=== PATIENT | male | born 1955 | race Caucasian/White ===

== ENCOUNTER 2023-11-04 08:18 | Observation (INO) ==
--- NOTE | 2023-10-13 14:52 | PAT Medication Instructions ---
Medication Instructions Date of Service October 13, 2023 Home Medications Micahopher's Tissue & Bone 1 dose PO QAM Fruit Pectin 1 dose PO DAILY cholecalciferol (vitamin D3) 25 mcg (1,000 unit) capsule (Vitamin D3) 25 mcg PO QAM cyanocobalamin (vitamin B-12) 500 mcg tablet (Vitamin B-12) 500 mcg PO QAM ibuprofen 200 mg tablet (Advil) 200 mg PO BID PRN meloxicam 15 mg tablet 15 mg PO QAM turmeric root extract 500 mg capsule 1,000 mg PO BID ASK your surgeon for instructions ibuprofen 200 mg tablet (Advil) 200 mg PO BID PRN meloxicam 15 mg tablet 15 mg PO QAM STOP taking 2 weeks before surgery (or as soon as possible if surgery is within 2 weeks) Micahopher's Tissue & Bone 1 dose PO QAM Fruit Pectin 1 dose PO DAILY turmeric root extract 500 mg capsule 1,000 mg PO BID DO NOT take the morning of surgery cholecalciferol (vitamin D3) 25 mcg (1,000 unit) capsule (Vitamin D3) 25 mcg PO QAM cyanocobalamin (vitamin B-12) 500 mcg tablet (Vitamin B-12) 500 mcg PO QAM Other Notes NOTHING TO EAT OR DRINK AFTER MIDNIGHT. If you have any questions please call us at [phone] or [phone] or [phone] or [phone]
--- NOTE | 2023-10-22 09:08 | Anesthesiology Consultation ---
Date of Service October 22, 2023 Assessment & Plan (1) Encounter for pre-operative examination: - Infectious disease screening: Per assessment on 10/22/23: No known infectious disease contacts or current infectious disease symptoms. No noted recent Covid positive test result. - Outpatient joint assessment: Pt currently scheduled for inpatient pathway. If surgeon requests review for outpatient joint pathway, patient is an acceptable candidate for outpatient joint program from anesthesia standpoint pending surgeon's office assessment that patient is motivated, has good support and completes Same Day Joint Program preop requirements. Chart Review Chart Review: Acceptable Risk for Surgery and Patient seen in Pre Admission Testing Teaching & Discussion Pre-Anesthesia Teaching/Discussion Notes: Instructed NPO after midnight before surgery,except medications with 15 cc of water. Medication instructions provided according to the PAT guidelines. History Surgery Operation Date: 11/04/23 07:15 Proposed Procedures p Right Total Knee Arthroplasty - Darius Whitman MD Height/Weight Height: 5 ft 9 in Weight: 104.8 kg Allergies Allergy/AdvReac Type Severity Reaction Status Date / Time No Known Allergies Allergy Verified 10/08/23 13:57 Medications Home Medications Medication Instructions Recorded Confirmed Last Taken Christopher's Tissue & Bone 1 dose PO QAM 10/08/23 10/08/23 Unknown Fruit Pectin 1 dose PO DAILY 10/08/23 10/08/23 Unknown cholecalciferol (vitamin D3) 25 25 mcg PO QAM 10/08/23 10/08/23 Unknown mcg (1,000 unit) capsule (Vitamin D3) cyanocobalamin (vitamin B-12) 500 500 mcg PO QAM 10/08/23 10/08/23 Unknown mcg tablet (Vitamin B-12) ibuprofen 200 mg tablet (Advil) 200 mg PO BID PRN Pain 10/08/23 10/08/23 Unknown meloxicam 15 mg tablet 15 mg PO QAM 10/08/23 10/08/23 Unknown turmeric root extract 500 mg 1,000 mg PO BID 10/08/23 10/08/23 Unknown capsule Past Medical History Medical History Obesity Osteoarthritis Exercise / Class Metabolic Activity II 4-5 Yardwork/Stairs/Walk up hill (uses cane) Past Family History Family History Sister Diabetes Denies family history of Ovarian cancer Prostate cancer Myocardial infarction Breast cancer Colorectal cancer Hypertension Past Surgical History Surgical History H/O lumbar discectomy Hx of tonsillectomy History of appendectomy Past Anesthesia History No Hx of Anesthesia Complications and No Family Hx of Anesthesia Complications History of PONV No Hx of PONV and No Hx of Motion Sickness Social History Smoking Status: Never smoker Do You Dip or Chew Tobacco: No Hx Alcohol Use: No Hx Substance Use: No Review of Systems Patient denies chest pain, shortness of breath, dyspnea on exertion, fever, chills, cough, wheezing, palpitations. Physical Exam Vital Signs VITALS BP 116/66 P 58 TEMP 97.9 SP02 95%RA RESP 16 PHYSICAL Full cervical extension range of motion. Full TMJ range of motion. TMD 4 finger breaths Mallampati Score 2 Dentition: upper/lower dentures Lungs: clear throughout to auscultation Cardiac: regular rate and rhythm, no murmurs noted Spine: normal Carotid arteries: negative bruit Extremities: no LE edema Short [place] Lab Results Anesthesia Preop Results Results Anesthesia Widget: WBC 6.44 K/ul (4.8-10.8) 10/22/23 Hgb 13.9 g/dl (14.0-18.0) L 10/22/23 Hct 40.4 % (42.0-52.0) L 10/22/23 Plt 200 K/uL (130-400) 10/22/23 Na 138 mmol/L (136-145) 10/22/23 K 4.2 mmol/L (3.5-5.1) 10/22/23 Cl 105 mmol/L (98-107) 10/22/23 CO2 28 mmol/L (21-32) 10/22/23 BUN 15 mg/dl (6-23) 10/22/23 Creat 0.69 mg/dl (0.6-1.4) 10/22/23 Glucose Level 76 mg/dl (70-99(Fasting)) 10/22/23 PT 10.7 Seconds (9.0-12.0) 10/22/23 PTT 27 Seconds (21-31) 10/22/23 INR 1.0 (0.9-1.1) 10/22/23 Urine Color Yellow 10/22/23 Urine Appearance Clear (Clear) 10/22/23 Urine pH 7.0 (4.5-7.5) 10/22/23 Urine Specific [place] 1.010 (1.000-1.030) 10/22/23 Urine Protein Negative (Negative) 10/22/23 Urine Glucose (UA) Negative (Negative) 10/22/23 Urine Ketones Negative (Negative) 10/22/23 Urine Blood Negative (Negative) 10/22/23 Urine Nitrite Negative (Negative) 10/22/23 Urine Bilirubin Negative (Negative) 10/22/23 Urine Urobilinogen Negative (Negative) 10/22/23 Urine Leukocyte Esterase Negative (Negative) 10/22/23 Blood Type A Negative 10/22/23 Antibody Screen NEGATIVE 10/22/23 Testing Electrocardiogram Date: 10/22/23 NSR at 60bpm. Low voltage QRS. Chest X-Ray Date: 10/22/23 FINDINGS: No pneumothorax. No pleural effusions. The heart is normal in size. No evidence for pulmonary edema. There are calcified left hilar lymph nodes and a calcified granuloma within the left lower lobe. The right lung is clear. No acute fractures identified. IMPRESSION: No acute process.
--- NOTE | 2023-11-01 18:54 | History & Physical Report ---
Date of Service November 01, 2023 Assessment & Plan (1) Primary osteoarthritis of right knee: Plan: Treatment options discussed with the patient. They failed conservative measures and wished to proceed with surgery. Risks, benefits and alternatives to surgery including but not limited to infection, DVT, pain, stiffness, need for revision surgery, damage to blood vessels, damage to nerves, PE, , were discussed with the patient and they wish to proceed. Plan for right total knee arthroplasty scheduled for November 04 at [facility] with Dr. Whitman. Plan on aspirin 81 mg twice daily for 1 month postop for DVT prophylaxis. Plan on outpatient physical therapy postop. All questions answered. Patient will follow up postoperatively. History of Present Illness Chief Complaint: Right knee pain Primary Care Provider: Richard Ruelas, DO 68-year-old male with no significant past medical history who presents with ongoing right knee pain. Pain is interfering with his daily activities. He has failed conservative measures. Patient denies headaches, sweats, fevers, chills, double vision, blurred vision, cough, sore throat, dysphagia, chest pain, sob, wheezing, n/v/d/c, numbness, tingling, fatigue, urinary symptoms, mood disorders. ROS positive for right knee pain and stiffness. Allergies Allergy/AdvReac Type Severity Reaction Status Date / Time No Known Allergies Allergy Verified 10/08/23 13:57 Home Medications Medication Instructions Recorded Confirmed Type Christopher's Tissue & Bone 1 dose PO QAM 10/08/23 10/08/23 History Fruit Pectin 1 dose PO DAILY 10/08/23 10/08/23 History cholecalciferol (vitamin D3) 25 25 mcg PO QAM 10/08/23 10/08/23 History mcg (1,000 unit) capsule (Vitamin D3) cyanocobalamin (vitamin B-12) 500 500 mcg PO QAM 10/08/23 10/08/23 History mcg tablet (Vitamin B-12) ibuprofen 200 mg tablet (Advil) 200 mg PO BID PRN Pain 10/08/23 10/08/23 History meloxicam 15 mg tablet 15 mg PO QAM 10/08/23 10/08/23 History turmeric root extract 500 mg 1,000 mg PO BID 10/08/23 10/08/23 History capsule Past Med/Surg History Medical History Obesity Osteoarthritis Surgical History H/O lumbar discectomy Hx of tonsillectomy History of appendectomy Family History Sister Diabetes Denies family history of Ovarian cancer Prostate cancer Myocardial infarction Breast cancer Colorectal cancer Hypertension Social History (Updated 11/26/22 @ 08:44 by Daphne Lott LPN) Smoking Status: Never smoker Second Hand Exposure: No; Do You Dip or Chew Tobacco: No; Tobacco Cessation Education Requested by Patient: No Hx Alcohol Use: No Hx Substance Use: No Preferred Language: Albanian Communication Ability: Effective Visual Impairment: No Limitations Hearing Ability: Normal Art Glass Setter Required: No Beliefs That Will Affect Care: None marital status: Current Living Situation: Spouse current occupational status: employed How many Children do You have: 2 How many Children do You have Comment: 5 ADOPTED Other Information That Helps Us Care for You: No Feels Safe at Home: Yes Safety Concerns: Feels Safe At This Time Childhood Exposure to Second-Hand Smoke: Yes Diet: regular caffeine: Yes during the past year weight has: remained stable Dental Care, Regularly: No Physical Activity Frequency: Daily Seatbelt Use: always Sunscreen Use: No Assistive Devices: Denture - Upper, Denture - Lower and Glasses Review of Systems All systems reviewed & are unremarkable except as noted in HPI & below Physical Exam Constitutional: well developed and well nourished; no acute distress Eyes: PERRL, conjunctivae normal, anicteric sclerae ENMT: external ear and nose normal, oropharynx normal Neck: trachea midline, no thyromegaly Respiratory: normal respiratory effort, lungs clear to auscultation Cardiovascular: RRR, no murmur, no edema Musculoskeletal: Right knee: Varus alignment. Moderate effusion. Tenderness medial joint line. There is crepitation with range of motion. Guarded Delio's. Stable to valgus varus stress test. Range of motion is 10 to 115 degrees. Skin: no rashes, warm and dry Neurologic: patellar DTR's 2+ bilat, sensation intact Psychiatric: A+Ox3, euthymic affect Results & Data Diagnostic Findings Right knee MRI demonstrates marked bone edema medial femoral condyle as well as edema of the tibia. There is subchondral collapse with insufficiency fracture versus osteonecrosis medial femoral condyle with loose osteochondral fragment and root tear medial meniscus with subluxation of the meniscus. X-rays de monstrate arthritic changes right knee.
[~2023-11-04 08:18] MED LIST: ACETAMINOPHEN 500 MG TAB PO SCH; CeleBREX 200 MG CAP PO SCH; FAMOTIDINE 20 MG TAB PO SCH; GABAPENTIN 300 MG CAP PO SCH; LR 500ML BOLUS, THEN 15ML/HR IV SCH; LR 60ML/HR IV SCH; METOCLOPRAMIDE HCL 10 MG TABLET PO SCH; ROPIV 0.5% 246mg, Ketorolac 30mg, EPINEPHrine 0.5mg in NSS INFIL SCH; ROPIVACAINE 0.5% 5 MG/ML 30 ML VIAL ONE; TRANEXAMIC ACID 1,000 MG **IV Intra-op IV SCH; TRANEXAMIC ACID 1,000 MG **IV Pre-op IV SCH; ceFAZolin 2000MG 2,000 MG/15 ML SYR IV SCH; dexAMETHasone**PF** 10 MG/ML VIAL IV SCH
[2023-11-04] MEDS ORDERED: fentaNYL citrate PF 100 MCG/2 ML VIAL ONE (08:23)
[2023-11-04] MEDS ORDERED: MIDAZOLAM HCL 1 MG/ML 2ML VIAL ONE (08:23)
[2023-11-04] MEDS ORDERED: ORTHO JOINT ANESTHETIC ONE (08:53)
--- NOTE | 2023-11-04 09:08 | History & Physical Bridge Note ---
Date of Service November 04, 2023 History & Physical Bridge Note I have examined the patient, reviewed the History & Physical and in the interval since the performance of the History & Physical I have noted the following changes of clinical significance: no changes noted
[2023-11-04] MEDS ORDERED: fentaNYL citrate PF 100 MCG/2 ML VIAL IV PRN (09:11)
[2023-11-04] MEDS ORDERED: ATROPINE SULFATE 0.1 MG/ML 10ML SYR IV PRN (09:11)
[2023-11-04] MEDS ORDERED: ONDANSETRON INJ 2 MG/ML 2 ML VIAL IV PRN ×2 (09:11→13:23)
[2023-11-04] MEDS ORDERED: ePHEDrine sulfate 50 MG/ML AMP IV PRN (09:11)
[2023-11-04] MEDS ORDERED: PROPOFOL IV EMULSION 10 MG/ML 20 ML VIAL IV ONE ×6 (11:01)
--- NOTE | 2023-11-04 11:53 | Post Operative Brief Note ---
Immediate Post Op Note v1 Date of Surgery November 04, 2023 Pre & Post Diagnosis Operation Date: 11/04/23 10:00 Pre-Op Diagnosis: Right Knee Osteoarthritis, insufficiency fracture medial femoral condyle possible AVN Post-Op Diagnosis: Right Knee Osteoarthritis, insufficiency fracture medial femoral condyle possible AVN I identified the patient and participated in the time-out.: Yes Procedure Operation Date: 11/04/23 10:00 Actual Procedures p Right Total Knee Arthroplasty(Right), asher and Acticoat superficial wound VAC application- Darius Whitman MD Surgeon Darius Whitman MD Printer'S Assistant Noe YBARRA Estimated Blood Loss 5 Findings Consistent with Post-Op Diagnosis Specimens Medial femoral condyle rule out AVN insufficiency fracture Other bone cuts Drains Hemovac Drain Anesthesia Type MAC Spinal Regional Complications none Disposition Disposition: Recovery Room Overlapping Procedure I was immediately available: during the entire case.
--- NOTE | 2023-11-04 11:59 | Operative Report ---
Post Operative Report Pre & Post Diagnosis Operation Date: 11/04/23 10:00 Pre-Op Diagnosis: Right Knee Osteoarthritis, medial femoral condyle insufficiency fracture with root tear medial meniscus with possible AVN medial femoral condyle Post-Op Diagnosis: Same I identified the patient and participated in the time-out.: Yes Procedure Operation Date: 11/04/23 10:00 Actual Procedures p Right Total Knee Arthroplasty(Right), maria d Acticoat superficial wound VAC application- Darius Whitman MD Surgeon Darius Whitman MD Conference Organizer Noe YBARRA Estimated Blood Loss 5 Findings Consistent with Post-Op Diagnosis Specimens Medial femoral condyle and other bone cuts Drains 2 Hemovac Anesthesia Type MAC Spinal Regional Complications none Disposition Accompanied Patient To Recovery: No Disposition: Recovery Room Indications 68-year-old male with progressive osteoarthritis after having a root tear medial meniscus with insufficiency fracture medial femoral condyle progressive osteoarthritis now grade 4 osteoarthritis medial compartment Description of Procedure Patient taken to the operating room the size under spinal MAC regional block anesthesia. Patient was placed supine on the operating table. A pneumatic tourniquet was placed about the right upper thigh. The right lower extremity was prepped and draped in sterile fashion. Knee exam demonstrated 10 degree flexion contracture with good flexion of the knee to about 125 degrees with a large effusion and no instability. The leg was elevated exsanguinated with an Esmarch bandage and pneumatic tourniquet was raised to 325 millimeters of mercury. Skin incised sharply in longitudinal fashion. Subcutaneous flaps elevated. Incision was made through the medial retinaculum extending up in the mid third of the quadriceps tendon and down to the medial tibial tubercle. Intra-articular findings demonstrated grade 4 medial compartment osteoarthritis on femoral condyle and tibial plateau with flattening of the medial femoral condyle and some collapse of the joint surface of the far medial side extension weightbearing surface. There is also grade 4 changes in the patellofemoral joint. There was an old root type tear and medial meniscus with some calcification of the meniscus. The [employer] total knee arthroplasty system was used. To expose the knee the infrapatellar fat pad was resected. The meniscal remnants and cruciate ligaments were resected. The anterior fat pad over the femur in the area of the location of the anterior flange of the femoral component was resected. The lateral synovial bands were released. The femur was exposed. An intramedullary drill hole was made into the canal. A guide jaylen was placed. Distal femoral cutting guide was adjusted to resect a 5 degree valgus cut with 10 millimeters distal femur resected. The knee was extended and a subperiosteal peel lateral release was performed around the patella. Patella width was measured and width was reproduced using a freehand cut technique and a 36 x 10 mm symmetrical patella component. The 3 drill holes were made and the excess lateral facet was beveled off to prevent any impingement. Attention was taken back to the femur which was exposed with retractors and the femoral sizing guide was pinned in position. The drill holes were placed in 3 of external rotation to match the epicondylar axis. The femur sized for a 7 component. The 4-in-1 cutting block was placed and then the anterior posterior and chamfer cuts are made. The tibia was then subluxed. The external tibial cutting guide was adjusted to make a perpendicular cut to the long axis of the tibia below the most deficient bone loss side. Cut was adjusted for slope. A lamina senior catering sales manager was used and the flexion extension gaps were balanced. Minor medial releases were required. All posterior osteophytes removed. All meniscal remnants were resected. The tibia exposed and the trial tibial component size 6 was externally rotated in line with the tibial tubercle and pinned in position. The punch for stem was used. The notch cutting device was centered appropriately and the femoral notch cut was made. The femoral trial was inserted. Trial tibial inserts were placed and size 11 gave balanced ligaments through flexion and extension. Patella tracking was assessed. The patella tracked centrally. The trial components were then removed and the orthomix anesthetic cocktail was injected per protocol. The knee was then copiously irrigated with pulsatile lavage saline solution. Final components were then cemented with Refobacin cement. Xperience irrigation placed over metal compoments prior to polyethylene insertion. Final components were triathlon posterior stabilized 7 right femoral component, triathlon X.3 polyethylene 36 x 10 mm symmetrical patella, the triathlon primary tibial baseplate size 6 with a 6 x 11 mm posterior stabilized X.3 polyethylene tibial bearing insert. After the cement cured further pulsatile lavage irrigation was then performed with Xperience and 2 Hemovac drains were brought out laterally. The quadriceps tendon and medial retinaculum were closed with figure of 8 #1 Vicryl sutures. The knee was taken through full range of motion and the repair was secure. Knee range of motion was 0 through 130 degrees. The subcutaneous tissues were closed with 2-0 Vicryl sutures. Skin was closed with naresh. Maria D and Acticoat superficial wound VAC was applied. The patient tolerated the procedure well. Noe YBARRA was my physician volunteer assistant who participated as assistant store manager trainee and was involved in all aspects of the procedure including patient positioning prepping and draping,leg positioning ,soft tissue retraction and instrument management and participated in the closing and application of superficial wound VAC and will participate in postoperative care of the patient. The patient tolerated the procedure well. I attest to the content of the Intraoperative Record and any orders documented therein. Any exceptions are noted below.
--- NOTE | 2023-11-04 12:27 | XRay Report ---
TWO VIEWS RIGHT KNEE CLINICAL HISTORY: Postoperative examination. FINDINGS: AP and crosstable lateral portable views of the right knee are obtained. A right knee arthr oplasty is in near anatomic alignment. There has been undersurface remodeling of the patella. No acut e fracture is seen. There are expected postoperative changes around the knee including skin clips, a surgical drain, soft tissue edema, and subcutaneous gas. IMPRESSION: Expected postoperative changes status post right knee arthroplasty. No acute fracture is seen. ACT 112: Negative or not required by law. Electronically signed by: Miquel Joshi M.D. 11/04/2023 12:26 PM
--- NOTE | 2023-11-04 13:12 | Anesthesiology Progress Note ---
Date of Service November 04, 2023 Anesthesia Post Procedure Vital Signs Vital Signs: Temp Pulse Resp BP Pulse Ox O2 Del Method O2 Flow Rate 11/04/23 12:50 85 12 106/69 94 Nasal Cannula 2 11/04/23 12:40 36.2 C L 83 12 120/65 92 Nasal Cannula 2 11/04/23 12:30 79 14 106/65 90 Room Air 11/04/23 12:20 94 H 17 108/64 94 Oxymask 2 11/04/23 12:10 83 17 107/66 96 Oxymask 7 11/04/23 12:00 84 16 106/65 97 Oxymask 12 11/04/23 11:53 36.2 C L 80 12 107/61 96 Oxymask 12 11/04/23 08:46 36.7 C 85 20 127/82 96 Room Air Pain Intensity Right Knee: Pain Intensity: 1 Transfer of Care Handoff Completed per policy Notes Mental Status: alert / awake / arousable and participated in evaluation Patient Amnestic to Procedure: Yes Nausea / Vomiting: adequately controlled Pain: adequately controlled Airway Patency, RR, SpO2: stable & adequate BP & HR: stable & adequate Hydration State: stable & adequate Anesthetic Complications: no major complications apparent and Pt Satisfied with anesthetic care
[2023-11-04] MEDS ORDERED: METOCLOPRAMIDE HCL INJ 5 MG/ML 2 ML VIAL IV PRN (13:23)
[2023-11-04] MEDS ORDERED: oxyCODONE HCL IR 5 MG TAB (IMMEDIATE RELEASE) PO PRN (13:23)
[2023-11-04] MEDS ORDERED: TAMSULOSIN HCL 0.4 MG CAP PO PRN (13:23)
[2023-11-04] MEDS ORDERED: HYDROmorphone INJ 0.5 MG/0.5 ML SYR IV PRN (13:23)
[2023-11-04] MEDS ORDERED: NALOXONE HCL 0.4 MG/1 ML VIAL/CARP IV PRN (13:23)
[2023-11-04] MEDS ORDERED: bisacodyL 10 MG SUPP PR PRN (13:23)
[2023-11-04] MEDS ORDERED: MAGNESIUM HYDROXIDE SUSP 30 ML UDC PO PRN (13:23)
[2023-11-04] MEDS: SODIUM CHLORIDE 0.9% 1,000 ML IV SCH (15:48)
[2023-11-04] MEDS: ACETAMINOPHEN 500 MG TAB PO SCH ×2 (15:48→22:32)
[2023-11-04] MEDS: ceFAZolin 2000MG 2,000 MG/15 ML SYR IV SCH (18:05)
[2023-11-04] MEDS: ASPIRIN 81 MG ECTAB PO SCH (20:18)
[2023-11-04] MEDS: CeleBREX 200 MG CAP PO SCH (20:18)
[2023-11-04] MEDS: DOCUSATE SODIUM 100 MG CAP PO SCH (20:18)
[2023-11-04] MEDS ORDERED: SENNA 8.6 MG TAB PO SCH (21:00)
[2023-11-05] MEDS: ceFAZolin 2000MG 2,000 MG/15 ML SYR IV SCH (01:46)
[2023-11-05] MEDS: SODIUM CHLORIDE 0.9% 1,000 ML IV SCH (01:47)
[2023-11-05] MEDS: ACETAMINOPHEN 500 MG TAB PO SCH ×2 (05:22→14:03)
[2023-11-05 06:01] LABS: Hematocrit (blood only) 34.8 % (42.0-52.0); Hemoglobin 12.1 g/dl (14.0-18.0); Mean Corpuscular Hemoglobin 29.4 pg (25.0-34.0); Mean Corpuscular Hgb Conc 34.8 g/dL (32.0-36.0); Mean Corpuscular Volume 84.7 fL (80.0-100.0); Mean Platelet Volume 9.9 fL (9.4-12.4); Platelet Count 217 K/uL (130-400); RDW Coefficient of Variation 12.4 % (11.5-14.5); RDW Standard Deviation 38.3 fL (36.4-46.3); Red Blood Count 4.11 M/uL (4.70-6.10); White Blood Count 13.72 K/ul (4.8-10.8)
[2023-11-05 06:19] LABS: Est GFR (African American) 106.6 ml/min; Est GFR (Non-African American) 91.9 ml/min
[2023-11-05 06:20] LABS: BUN Creatinine Ratio 24.7 (10-20); Calcium 8.3 mg/dl (8.6-10.3); Creatinine Clr Calc Pharmacy 104.9 ml/min
--- NOTE | 2023-11-05 07:36 | Orthopedic Progress Note ---
Date of Service November 05, 2023 Assessment & Plan (1) Primary osteoarthritis of right knee: Plan: POD#1 Right TKA -PT/OT -Pain management as written -DVT prophylaxis-SCDs, TEDs, ASA 81mg BID -AM labs-Hgb 12.1 from 13.9 preop, acute blood loss anemia due to surgical loss vs dilutional. Leukocytosis likely reactive due to surgical stress vs perioperative steroids. Patient is asymptomatic -D/C planning-Plan on d/c home with outpatient PT when stable. Will monitor hemovac output through the AM. If slows down plan on d/c home today vs tomorrow. Admission and Anticipated Discharge Date Admission Date: November 04, 2023 Subjective Patient is POD#1 Right TKA. Feeling well this morning. Minimal pain. No current complaints. Denies chest pain, sob, dizziness, PEREZ, fever/chills, n/v/d. Review of Systems Review of Systems: All systems reviewed & are unremarkable except as noted in Subjective Physical Exam Physical Exam: Right knee dressing is c/d/i, toes mobile with good DF, no calf tenderness. Able to do SLR. Distally n/v status and sensation grossly intact. Hemovac output 275cc last shift. Results & Data Vital Signs (Past 12 Hours) Vital Signs Temp Pulse Resp BP Pulse Ox O2 Del Method 11/05/23 07:18 36.5 C 86 18 117/68 96 Room Air 11/05/23 03:37 36.6 C 78 18 130/74 93 Room Air 11/04/23 23:14 36.6 C 71 18 137/71 94 Room Air Laboratory Results Lab Results 11/05/23 Range/Units 05:20 WBC 13.72 H (4.8-10.8) K/ul RBC 4.11 L (4.70-6.10) M/uL Hgb 12.1 L (14.0-18.0) g/dl Hct 34.8 L (42.0-52.0) % MCV 84.7 (80.0-100.0) fL MCH 29.4 (25.0-34.0) pg MCHC 34.8 (32.0-36.0) g/dL RDW Std Deviation 38.3 (36.4-46.3) fL RDW Coeff of Arturo 12.4 (11.5-14.5) % Plt Count 217 (130-400) K/uL MPV 9.9 (9.4-12.4) fL Sodium 138 (136-145) mmol/L Potassium 4.0 (3.5-5.1) mmol/L Chloride 107 (98-107) mmol/L Carbon Dioxide 25 (21-32) mmol/L Anion Gap 6 (3-11) BUN 19 (6-23) mg/dl Creatinine 0.77 (0.6-1.4) mg/dl Est Cr Clr Drug Dosing 104.9 ml/min Est GFR ( Amer) 106.6 ml/min Est GFR (Non-Af Amer) 91.9 ml/min BUN/Creatinine Ratio 24.7 H (10-20) Glucose 121 H (70-99(Fasting)) mg/dl Calcium 8.3 L (8.6-10.3) mg/dl
[2023-11-05] MEDS: ASPIRIN 81 MG ECTAB PO SCH (07:52)
[2023-11-05] MEDS: CeleBREX 200 MG CAP PO SCH (07:52)
[2023-11-05] MEDS: DOCUSATE SODIUM 100 MG CAP PO SCH (07:52)
[2023-11-05] MEDS ORDERED: MULTIVITAMIN TAB PO SCH (09:00)
[2023-11-05] MEDS ORDERED: CHOLECALCIFEROL 1,000 UNITS 25 MCG TAB PO SCH (09:00)
[2023-11-05] MEDS ORDERED: CYANOCOBALAMIN (B-12) 500 MCG TABLET PO SCH (09:00)
--- NOTE | 2023-11-05 10:15 | Hospitalist Consultation ---
Date of Consultation November 05, 2023 Assessment & Plan (1) Primary osteoarthritis of right knee: - S/p Right Total Knee arthroplasty Right Knee with Dr. Whitman 11/04 -Pain control, DVT proh and abx per primary team -Hgb 12.1 today, was 13.9 prior to surgery. -Electrolytes without abnormality - PT/OT Can continue vitamins at discharge. (2) Obesity: BMI 33.1 Plan Dispo: medically stable, discharge planning per primary team Thank you for allowing us to participate in the care of Mr. Whittington. Hospitalist team will sign off, please contact us with any new concerns. History of Present Illness Reason for Consultation: Medical management Attending Physician: Darius Whitman MD History of Present Illness Mr Whittington is a 68 year old male with a past medical history of knee pain and arthritis. Currently in the hospital after a Right total Knee replacement. At home mainly takes vitamins for his overall health. Denies any hx of diabetes or HTN. Currently feeling well, states knee pain is much less than anticipated. He had a bowel movement this morning. Good appetite. Has been ambulating without issue. Lives at home with and children. Denies CP or SOB Allergies Allergy/AdvReac Type Severity Reaction Status Date / Time No Known Allergies Allergy Verified 11/04/23 08:44 Home Medications Medication Instructions Recorded Confirmed Type Christopher's Tissue & Bone 1 dose PO QAM 10/08/23 11/04/23 History Fruit Pectin 1 dose PO DAILY 10/08/23 11/04/23 History cholecalciferol (vitamin D3) 25 25 mcg PO QAM 10/08/23 11/04/23 History mcg (1,000 unit) capsule (Vitamin D3) cyanocobalamin (vitamin B-12) 500 500 mcg PO QAM 10/08/23 11/04/23 History mcg tablet (Vitamin B-12) ibuprofen 200 mg tablet (Advil) 200 mg PO BID PRN Pain 10/08/23 11/04/23 History meloxicam 15 mg tablet 15 mg PO QAM 10/08/23 11/04/23 History turmeric root extract 500 mg 1,000 mg PO BID 10/08/23 11/04/23 History capsule acetaminophen 500 mg tablet 1,000 mg (2 x 500 mg) PO Q8 #60 11/05/23 Rx (Tylenol Extra Strength) tabs aspirin 81 mg tablet,delayed 81 mg PO BID #60 tabs 11/05/23 Rx release celecoxib 200 mg capsule (Celebrex) 200 mg PO BID #60 caps 11/05/23 Rx oxycodone 5 mg tablet 5 - 10 mg (1 - 2 x 5 mg) PO 11/05/23 Rx .Q4h-6h PRN pain #30 tabs Patient History Medical History (Updated 11/05/23 @ 10:09 by Cherise Hinton PA-C) Obesity Osteoarthritis Surgical History H/O lumbar discectomy Hx of tonsillectomy History of appendectomy Family History Sister Diabetes Denies family history of Ovarian cancer Prostate cancer Myocardial infarction Breast cancer Colorectal cancer Hypertension Social History (Updated 11/26/22 @ 08:44 by Daphne Lott LPN) Smoking Status: Never smoker Second Hand Exposure: No; Do You Dip or Chew Tobacco: No; Tobacco Cessation Education Requested by Patient: No Hx Alcohol Use: No Hx Substance Use: No Preferred Language: Latvian Communication Ability: Effective Visual Impairment: No Limitations Hearing Ability: Normal Driver Helper Required: No Beliefs That Will Affect Care: None marital status: Current Living Situation: Spouse current occupational status: employed How many Children do You have: 2 How many Children do You have Comment: 5 ADOPTED Other Information That Helps Us Care for You: No Feels Safe at Home: Yes Safety Concerns: Feels Safe At This Time Childhood Exposure to Second-Hand Smoke: Yes Diet: regular caffeine: Yes during the past year weight has: remained stable Dental Care, Regularly: No Physical Activity Frequency: Daily Seatbelt Use: always Sunscreen Use: No Assistive Devices: Denture - Upper, Denture - Lower and Glasses Review of Systems Review of Systems: All systems reviewed & are unremarkable except as noted in Subjective Physical Exam Physical Exam: General: NAD, appears well, dressed in street clothes, VS as above Resp: normal respiratory effort, lungs clear to auscultation CV: RRR, no murmur, Extremities: Moves all extremities, ambulating around the room while I am interving him, tien wrap over right knee, no edema Neuro: A&O x3, Skin: intact, no lesions noted Results & Data Results & Data Vital Signs (Past 12 Hours) Vital Signs Temp Pulse Resp BP Pulse Ox O2 Del Method 11/05/23 07:18 36.5 C 86 18 117/68 96 Room Air 11/05/23 03:37 36.6 C 78 18 130/74 93 Room Air 11/04/23 23:14 36.6 C 71 18 137/71 94 Room Air Laboratory Results CBC and chemistry reviewed PG Care Time/CCT Total # of Minutes Spent Total Time Spent with Patient: Total time spent is greater than 50% in coordination of care (as documented) at patient's floor/unit and/or counseling patient: Coding Level of Care Code 71431 IN/OBS CONSULT LVL 2,35M Diagnoses Primary osteoarthritis of right knee M17.11 Obesity E66.9
--- NOTE | 2023-11-05 14:42 | Communication Note ---
Date of Service: November 05, 2023 Pt seen at bedside. Pt in chair at bedside. Feeling well. No complaints. HV drainage 125cc from latest emptying. Discussed with Noe Marcano per their team for DC.
--- NOTE | 2023-11-06 09:03 | Discharge Summary ---
Date of Service November 06, 2023 Admission HPI Per Admitting Provider 68-year-old male with no significant past medical history who presents with ongoing right knee pain. Pain is interfering with his daily activities. He has failed conservative measures. Patient denies headaches, sweats, fevers, chills, double vision, blurred vision, cough, sore throat, dysphagia, chest pain, sob, wheezing, n/v/d/c, numbness, tingling, fatigue, urinary symptoms, mood disorders. ROS positive for right knee pain and stiffness. Admission Exam Per Admitting Provider Constitutional: well developed and well nourished; no acute distress Eyes: PERRL, conjunctivae normal, anicteric sclerae ENMT: external ear and nose normal, oropharynx normal Neck: trachea midline, no thyromegaly Respiratory: normal respiratory effort, lungs clear to auscultation Cardiovascular: RRR, no murmur, no edema Musculoskeletal: Right knee: Varus alignment. Moderate effusion. Tenderness medial joint line. There is crepitation with range of motion. Guarded Delio's. Stable to valgus varus stress test. Range of motion is 10 to 115 degrees. Skin: no rashes, warm and dry Neurologic: patellar DTR's 2+ bilat, sensation intact Psychiatric: A+Ox3, euthymic affect Principal Diagnosis Right knee osteoarthritis Discharge Exam Right knee dressing is c/d/i, toes mobile with good DF, no calf tenderness. Able to do SLR. Distally n/v status and sensation grossly intact. Hemovac output 275cc last shift. Constitutional well developed and well nourished; no acute distress Discharge Data Allergies Allergy/AdvReac Type Severity Reaction Status Date / Time No Known Allergies Allergy Verified 11/04/23 08:44 Consultations 11/02/23 12:23 Consult Hospitalist Routine Procedures Performed Operation Date: 11/04/23 10:00 Actual Procedures p Right Total Knee Arthroplasty(Right) - Darius Whitman MD Ordered Studies 11/04/23 05:00 US - OR guided needle placemen Routine Hospital Course (1) Primary osteoarthritis of right knee: POD#1 Right TKA -PT/OT -Pain management as written -DVT prophylaxis-SCDs, TEDs, ASA 81mg BID -AM labs-Hgb 12.1 from 13.9 preop, acute blood loss anemia due to surgical loss vs dilutional. Leukocytosis likely reactive due to surgical stress vs bozena operative steroids. Patient is asymptomatic -D/C planning-Plan on d/c home with outpatient PT when stable. Will monitor hemovac output through the AM. If slows down plan on d/c home today vs tomorrow. Pt seen at bedside. Pt in chair at bedside. Feeling well. No complaints. HV drainage 125cc from latest emptying. Discussed with Noe Marcano per their team for DC. Lab Results 11/05/23 Range/Units 05:20 WBC 13.72 H (4.8-10.8) K/ul RBC 4.11 L (4.70-6.10) M/uL Hgb 12.1 L (14.0-18.0) g/dl Hct 34.8 L (42.0-52.0) % MCV 84.7 (80.0-100.0) fL MCH 29.4 (25.0-34.0) pg MCHC 34.8 (32.0-36.0) g/dL RDW Std Deviation 38.3 (36.4-46.3) fL RDW Coeff of Arturo 12.4 (11.5-14.5) % Plt Count 217 (130-400) K/uL MPV 9.9 (9.4-12.4) fL Sodium 138 (136-145) mmol/L Potassium 4.0 (3.5-5.1) mmol/L Chloride 107 (98-107) mmol/L Carbon Dioxide 25 (21-32) mmol/L Anion Gap 6 (3-11) BUN 19 (6-23) mg/dl Creatinine 0.77 (0.6-1.4) mg/dl Est Cr Clr Drug Dosing 104.9 ml/min Est GFR ( Amer) 106.6 ml/min Est GFR (Non-Af Amer) 91.9 ml/min BUN/Creatinine Ratio 24.7 H (10-20) Glucose 121 H (70-99(Fasting)) mg/dl Calcium 8.3 L (8.6-10.3) mg/dl Total Time Total Time Spent Total Time Spent (In Minutes): 20 Discharge Plan Discharge Items Patient Disposition: Home - Self-Care Reason For Visit: Right Knee Osteoarthritis Discharge Diagnosis: Right knee osteaorthritis Activity: Per Instructions section Weightbearing: Full weightbearing Non-emergency contact: Surgeon Call non-emergency contact if: you have any medication questions, your pain is concerning for you, you have a fever, your temperature is above 101, your wound has increased redness and your wound has increased drainage Follow-up/Referrals: Richard Ruelas DO [Primary Care Provider] - Darius Whitman MD [Surgeon] - Diet: Regular Addtl Attending Provider Instructions: ACTIVITY RECOMMENDATIONS: SELF CARE INSTRUCTIONS AFTER TOTAL KNEE REPLACEMENT A. You may need to continue a physical therapy program after discharge from the hospital. There are several options available to you. Your doctor will assist you in selecting the best one for you. 1. An out-patient facility 2 to 3 times a week for therapy or home therapy. 2. Continue working on all exercises taught to you in the hospital. Your goals should be to increase bending of your knee to 90 degrees and beyond and to fully straighten your knee. B. You may progress at your own pace from walking with a walker or crutches to a cane; then to no assistive devices. C. Make walking a part of your daily routine. Be up as much as comfortable with rest periods throughout the day. Rest with leg elevation is very important. Use the ice wrap frequently for the first 3-4 weeks. D. There are no restrictions on activities. You may ride in a car, shop, participate in button breaker operator and all social activities. E. Wear the long elastic stockings (VERENICE hose) 20 hours a day for 2 weeks after surgery. They can be removed several times a day for laundering and for a bath. F. You may shower, no tub baths until cleared by your doctor. SPECIAL CARE INSTRUCTIONS: VERY IMPORTANT TO READ AND REVIEW A. There are a few signs you need to watch for after you are home. Call [facility] [place] if you notice any of the followin. Increased severe knee pain. Some pain is expected especially when you exercise. 2. Increased swelling in your leg or knee; pain or swelling of the calf muscle in either lower leg. 3. Any fluid drainage from the incision. 4. Shortness of breath or chest pain. B. Please call [facility] at if you have any concerns or questions about your operation or recovery. The doctor or his nurse will return your call promptly. C. You must take antibiotics before dental work, bladder, bowel or other surgery. Your doctor will provide you with a permanent care to carry describing this precaution. IMPORTANT: * REMEMBER TO TAKE ASPIRIN, 81 MG, TWICE DAILY FOR 4 WEEKS UNLESS OTHERWISE DIRECTED. THIS IS YOUR BLOOD THINNER. * HIGH RISK PATIENTS MAY BE PRESCRIBED A STRONGER BLOOD THINNER. THIS WILL BE PROVIDED AT DISCHARGE. * CALL IF INCREASED PAIN, REDNESS, DRAINAGE OR FEVER GREATER THAT 101. * WEAR VERENICE HOSE 20 HOURS PER DAY FOR 2 WEEKS. There is a large suction dressing covering your incision. This will help pull any excess drainage from the wound and allow your incision to heal properly. You may shower with this if you can keep the unit outside of the shower. If any bleeding or leakage is noted please call your doctor's office. This will remain on your incision for 7 days and then should be removed. This can be done yourself or by the home nursing staff if applicable. The entire unit is disposable once removed. Once removed, keep incision clean and dry. If redness or drainage is noted, please call your surgeon. IF INCISION IS LEAKING THROUGH DRESSING, CALL THE OFFICE . FOLLOW UP VISIT: If appointment is not already scheduled: Please call [facility] [place] to make a follow-up appointment for 2 weeks after your surgery at . Stand-Alone Forms: My [employer] AS, Smoking Cessation Medications and DC Order Prescriptions: New celecoxib [Celebrex] 200 mg Capsule 200 mg PO BID Qty: 60 0RF aspirin 81 mg Tablet,Delayed Release (Dr/Ec) 81 mg PO BID Qty: 60 0RF acetaminophen [Tylenol Extra Strength] 500 mg Tablet 1,000 mg PO Q8 Qty: 60 0RF oxycodone 5 mg Tablet 5 - 10 mg PO .Q4h-6h MDD 6 PRN (Reason: pain) Qty: 30 0RF Rx Instructions: Ongoing therapy, Dr. Whitman supervising Continued cyanocobalamin (vitamin B-12) [Vitamin B-12] 500 mcg Tablet 500 mcg PO QAM cholecalciferol (vitamin D3) [Vitamin D3] 25 mcg (1,000 unit) Capsule 25 mcg PO QAM turmeric root extract 500 mg Capsule 1,000 mg PO BID Christopher's Tissue & Bone 1 dose PO QAM Fruit Pectin 1 dose PO DAILY Discontinued meloxicam 15 mg Tablet 15 mg PO QAM ibuprofen [Advil] 200 mg Tablet 200 mg PO BID PRN (Reason: Pain) Discharge Orders: Discharge Order (Routine); Ordered 11/05/23 Ordered By: Jeff Ramirez/Other Patient Handouts: DVT Post Op Prevention Admission Data Admit Date/Time: 11/04/23 11:55 Attending Provider: Darius Whitman Admit Provider: Darius Whitman Primary Care Provider: Richard Ruelas Other Interventions: Discharge Summary Assessment (RN) Last Done: 11/05/23 15:34
== END 2023-11-05 16:12 | disposition home or self-care (01) ==
LOC: 3E 08:18 → ASU 08:18